=== PATIENT | male | born 2000 | race Two or more races ===

== ENCOUNTER 2020-09-25 11:01 | Emergency (ER) | payer OTHER ==
[~2020-09-25] VITALS: Ht 177.8 cm; Wt 62.3 kg
[2020-09-25] MEDS ORDERED: IBUPROFEN 800 MG TABLET PO ONE (11:30)
[2020-09-25 12:12] VITALS: BP 120/69
== END 2020-09-25 12:38 | disposition home or self-care (01) ==
LOC: EMS 11:05
DX: S60.221A Contusion of right hand, initial encounter (principal); W19.XXXA Unspecified fall, initial encounter; Y93.89 Activity, other specified; Y92.89 Other specified places as the place of occurrence of the external cause; Y99.8 Other external cause status